=== PATIENT | female | born 1950 | race Caucasian/White ===

== ENCOUNTER 2022-01-28 18:14 | Emergency (ER) | payer MEDICARE | END 2022-01-28 22:10 | disposition home or self-care (01) | LOC: CSHERS 18:14 | DX: R60.0 Localized edema (principal); E11.9 Type 2 diabetes mellitus without complications; I11.0 Hypertensive heart disease with heart failure; I50.9 Heart failure, unspecified; J44.9 Chronic obstructive pulmonary disease, unspecified ==